=== PATIENT | male | born 1965 | race African-American/Black ===

== ENCOUNTER 2016-11-22 12:00 | Outpatient (CLI) | payer OTHER ==
[~2016-11-22] VITALS: Ht 185.4 cm; Wt 110.5 kg
--- NOTE | ~2016-11-22 | HEMODYNAMI ---
PATIENT:ANGELICA CHOI MEDICAL RECORD: [id number] : 61 LOCATION:D.CAT ADMISSION DATE: 11/22/16 Generatedon:11/22/201614:32 Patient name: ANGELICA CHOI Patient #: [id number] SSN: : Date of study: 11/22/2016 Page: Of Hemodynamic Procedure Report Patient Data Patient Demographics Procedure consent was obtained First Name: ANGELICA Gender: Male Last Name: JIMBO : 1965 Patient #: [id number] Age: 51 year(s) Race: Black Additional ID: [id number] Contact details [address]: [address] [place] [address] State: [place] City: [place] Zip code: [address] Past Medical History Allergies Allergen Reaction Date Comments Reported Morphine 11/22/2016 Admission Admission Data Admission Date: 11/22/2016 Admission Time: 12:00 Lab Results Lab Result Date: 11/22/2016 Lab Result Time: 0:00 Biochemistry Name Units Result Min Max BUN mg/dl 11 --(-*--)-- 7 18 Creatinine mg/dl 1.1 --(--*-)-- 0.6 1.3 CBC Name Units Result Min Max Hemoglobin g/dl 13.6 --(*---)-- 13.5 17.5 Procedure Procedure Types Cath Procedure Diagnostic Procedure C [facility] w/Coronaries Miscellaneous Procedures Moderate Sedation up to 15 minutes Procedure Description Procedure Date Procedure Date: 11/22/2016 Procedure Start Time: 14:21 Procedure End Time: 14:29 Procedure Staff Name Function Carlyle Coronado RT Scrub Evelyn Harding RN Nurse Margarito Logan RT Monitor Duane Campoverde MD Performing Physician Procedure Data Cath Procedure Fluoroscopy Diagnostic fluoroscopy Total fluoroscopy Time: 1.8 time: 1.8 min min Diagnostic fluoroscopy Total fluoroscopy dose: 586 dose: 586 mGy mGy Contrast Material Contrast Material Type Amount (ml) Isovue 300 56 Entry Location Entry Primary Successful Side Size Upsize Upsize Entry Closure Menard ccessful Closure Location (Fr) 1 (Fr) 2 (Fr) Remarks Device Remarks Radial Right 6 Fr Mechanical artery Short Compression Diagnostic catheters Device Type Used For End Catheter Placement Terumo 5Fr Eric 110cm LV Angiography catheter Procedure Complications No complications Procedure Medications Medication Administration Route Dosage Oxygen NC 2 l/min Heparin Flush Bag added to field 2 bags (1000units/500ml NS) Lidocaine 2% added to field 20 Radial Cocktail added to field 1 syringe (Verapomil 2mg/Nitro 400mcg/Heparin 1500units) Versed I.V. 1 mg Fentanyl I.V. 50 mcg Versed I.V. 1 mg Fentanyl I.V. 50 mcg Fentanyl I.V. 50 mcg Radial Cocktail I.A. 1 syringe (Verapomil 2mg/Nitro 400mcg/Heparin 1500units) Versed I.V. 1 mg Hemodynamics Rest HGB: 13.6 (g/dl) Heart Rate: 67 (bpm) Pressure Samples Time Site Value (mmHg) Purpose Heart Use Rate(bpm) 14:22 LV 143/-2,18 EDP 69 14:23 AO 120/68(85) Pullback 58 14:23 LV 157/2,19 Pullback 58 Gradients Valve Time Site 1 Site 2 Mean SEP/DFP Peak To Heart Use (mmHg) (sec/min) Peak Rate (mmHg) (bpm) Aortic 14:23 LV AO 9 14 37 58 157/2,19 120/68(85) Calculations Valve P-P Mean Valve Index Valve Source Name Gradient Area Flow (cm2) Aortic 37 9 37 9 Snapshots Pre Cath Intra NCS Post Cath Vital Signs Time Heart Resp SPO2 NIBP (mmHg) Rhythm Pain Sedation Rate (ipm) (%) Status Level (bpm) 13:55:32 63 16 100 138/82(111) NSR 0 (11) 10(A) , No pain 13:59:54 61 16 100 140/82(116) NSR 0 (11) 10(A) , No pain 14:04:10 62 18 100 138/84(102) NSR 0 (11) 10(A) , No pain 14:08:30 58 16 98 127/73(96) NSR 0 (11) 10(A) , No pain 14:12:50 60 16 98 141/72(123) NSR 0 (11) 10(A) , No pain 14:17:08 60 16 98 120/74(98) NSR 0 (11) 9(A) , No pain 14:21:20 60 16 98 128/78(109) NSR 0 (11) 9(A) , No pain 14:25:38 72 16 98 120/66(85) NSR 0 (11) 9(A) , No pain 14:29:17 75 16 93 125/74(98) NSR 0 (11) 9(A) , No pain Medications Time Medication Route Dose Verified Delivered Reason Notes Effectiveness by by 13:58:21 Oxygen NC 2 l/min Duane Evelyn Per Gilles Harding RN physician 13:58:34 Heparin Flush added 2 bags Duane Duane used for Bag to Gilles Campoverde MD procedure (1000units/500ml field NS) 13:58:41 Lidocaine 2% added 20ml Duane Duane used for to vial Gilles Campoverde MD procedure field 13:58:47 Radial Cocktail added 1 Duane Duane used for (Verapomil to syringe Gilles Campoverde MD procedure 2mg/Nitro field 400mcg/Heparin 1500units) 14:11:56 Versed I.V. 1 mg Duane Evelyn for sedation Gilles Harding RN 14:12:04 Fentanyl I.V. 50 mcg Udane Evelyn for sedation Gilles Harding RN 14:14:02 Versed I.V. 1 mg Duane Evelyn for sedation Gilles Harding RN 14:14:12 Fentanyl I.V. 50 mcg Duane Evelyn for sedation Gilles Harding RN 14:16:18 Versed I.V. 1 mg Duane Evelyn for sedation Gilles Harding RN 14:16:51 Fentanyl I.V. 50 mcg Duane Evelyn for sedation Gilles Harding RN 14:21:38 Radial Cocktail I.A. 1 Duane Duane for (Verapomil syringe Gilles Campoverde MD vasodilation 2mg/Nitro 400mcg/Heparin 1500units) Procedure Log Time Note 13:19:01 ACC Patient presents with Stable Angina CCS Anginal Class 2--Slight limitation of ordinary activity. 13:19:04 Diagnostic Cath status Elective 13:30:53 Carlyle GRACIA(R) sent for patient. Start room use. 13:41:54 Time tracking: Regular hours 13:41:57 Plan of Care:Hemodynamics will remain stable., Cardiac rhythm will remain stable., Comfort level will be maintained., Respiratory function will remain adequate., Patient/ family verbilizes understanding of procedure., Procedure tolerated without complication., Recovers from procedure without complications.. 13:49:58 Patient received from Pre/Post Procedure Room to CCL 2 Alert and oriented. Tansferred to table in Supine position. 13:50:00 Warm blankets applied, and tony hugger turned on for patient comfort. 13:50:00 Correct patient and procedure confirmed by team. 13:50:01 Signed procedure consent form obtained from patient. 13:50:02 ECG and BP/O2 sat monitors applied to patient. 13:54:16 Vital chart was started 13:58:21 Oxygen 2 l/min NC was administered by Evelyn Harding RN; Per physician; 13:58:34 Heparin Flush Bag (1000units/500ml NS) 2 bags added to field was administered by Duane Campoverde MD; used for procedure; 13:58:41 Lidocaine 2% 20ml vial added to field was administered by Duane Campoverde MD; used for procedure; 13:58:47 Radial Cocktail (Verapomil 2mg/Nitro 400mcg/Heparin 1500units) 1 syringe added to field was administered by Duane Campoverde MD; used for procedure; 14:03:35 Baseline sample Acquired. 14:03:39 Rhythm: sinus rhythm 14:03:40 Full Disclosure recording started 14:04:59 H&P Date Dictated: 11/09/2016 Within 30 days and on chart., H&P Addendum completed by physician on day of procedure. (MUST COMPLETE FOR ALL OUTPATIENTS). 14:05:00 Pre-procedure instructions explained to patient. 14:05:01 Pre-op teaching completed and patient verbalized understanding. 14:05:02 Family in patients room. 14:05:04 Patient NPO since Midnight. 14:05:10 Patient allergic to Morphine 14:05:12 Is the patient allergic to Iodine/contrast media? No. 14:05:15 Is patient on blood thinner?No 14:05:31 Patient diabetic? No. 14:05:33 ----Pre-sedation anethsthesia assessment.---- 14:05:35 Previous problem with sedation/anesthesia? No ? 14:05:36 Snore? Yes 14:05:37 Sleep apnea? No 14:05:38 Deviated septum? No 14:05:40 Opens mouth fully? Yes 14:05:41 Sticks out tongue? Yes 14:05:43 Airway obstruction? No ? 14:05:44 Dentures? No ? 14:05:48 Pre procedure: right dorsailis pedis pulse 1+ Palpable, but thready & weak; easily obliterated 14:05:52 Modified Niels's test Ulnar < 7 seconds 14:05:55 Patient pain scale 0/10 ?. 14:05:59 IV patent on arrival in left hand with 0.9% NaCl at 10ml/hr. 14:06:19 Lab Result : BUN 11 mg/dl 14:06:19 Lab Result : Hemoglobin 13.6 g/dl 14:06:19 Lab Result : Creatinine 1.1 mg/dl 14:06:25 Lab results completed and on chart. 14:06:27 Right Radial & Right Groin area was prepped with chlora-prep and draped in sterile fashion 14:06:28 Alarms reviewed by R. N. 14:06:29 Sharps counted by scrub and verified by R.N. 14:07:36 Use device set Radial Dx 14:07:37 Acist Syringe opened to sterile field. 14:07:37 Medline Cath Pack opened to sterile field. 14:07:38 Bag Decanter opened to sterile field. 14:07:38 Terumo 6Fr Slender Glidesheath opened to sterile field. 14:07:38 St Moises 260cm J .035 wire opened to sterile field. 14:07:39 Acist Hand Control opened to sterile field. 14:07:39 Acist Manifold opened to sterile field. 14:07:40 Tegaderm 4 x 4 opened to sterile field. 14:07:40 MBrace Wrist Support opened to sterile field. 14:07:46 Cook 21G 4cm Radial Needle opened to sterile field. 14:11:19 --------ALL STOP TIME OUT------ 14:11:20 Final Timeout: patient, procedure, and site verified with staff and physician. All members of the team are in agreement. 14:11:22 Right Radial & Right Groin site verified by team. 14:11:30 Physical assessment completed. ASA score P 2 - A patient with mild systemic disease as per Duane Campoverde MD. 14:11:33 Sedation plan: IV Moderate Sedation Versed, Fentanyl 14:11:56 Versed 1 mg I.V. was administered by Evelyn Harding RN; for sedation; 14:12:04 Fentanyl 50 mcg I.V. was administered by Evelyn Harding RN; for sedation; 14:14:02 Versed 1 mg I.V. was administered by Evelyn Harding RN; for sedation; 14:14:12 Fentanyl 50 mcg I.V. was administered by Evelyn Harding RN; for sedation; 14:16:18 Versed 1 mg I.V. was administered by Evelyn Harding RN; for sedation; 14:16:51 Fentanyl 50 mcg I.V. was administered by Evelyn Harding RN; for sedation; 14:20:28 Procedure started. 14:21:03 Local anesthetic to right radial artery with Lidocaine 2% by Duane Campoverde MD.INITIAL ACCESS ONLY 14:21:12 A 6 Fr Short sheath was inserted into the Right Radial artery 14:21:38 Radial Cocktail (Verapomil 2mg/Nitro 400mcg/Heparin 1500units) 1 syringe I.A. was administered by Duane Campoverde MD; for vasodilation; 14:21:38 A Terumo 5Fr Eric 110cm catheter was advanced over the wire and used for LV Angiography. 14:22:09 LV angiography performed. 14:22:37 LV gram done using GUPTA 14::51 EF : 60 % 14::53 LV hemodynamics recorded. 14::57 Injector settings: Ml/sec: 7, Volume: 15, 14:25:32 LCA angiography performed. 14:25:34 RCA angiography performed. 14:: Catheter removed. 14:: Contrast amount:Isovue 300 56ml. 14::42 Sheath removed intact; hemostasis achieved with Mechanical Compression to the Right Radial artery. 14::44 Procedure ended.(Physican Out) 14::55 Fluoroscopy time 01.80 minutes. 14:: Fluoroscopy dose: 586 mGy 14:: Flurop Dose total: 586 14:27:15 Sharps counted by scrub and verified by R.N. 14:27:18 TR band inflated with 10cc of air. 14:27:24 Post right radial artery:stable 14:27:25 Post Procedure Pulses reassessed and unchanged 14:27:31 Post procedure rhythm: sinus rhythm 14:27:32 Post procedure instruction explained to patient.Patient verbalizes understanding. 14:28:13 Procedure type changed to Cath procedure, Diagnostic procedure, LHC, LHC w/Coronaries, Miscellaneous Procedures, Moderate Sedation up to 15 minutes 14:28:16 Procedure and supply charges have been captured, reviewed, submitted and are correct. 14:28:31 Terumo TR Band Standard opened to sterile field. 14:28:57 Procedure Complication : No complications 14:28:59 Vital chart was stopped 14:29:00 See physician's report for complete and final results. 14:29:05 Report given to Pre/Post Procedure Room. 14:29:11 Patient transfered to Pre/Post Procedure Room with Stretcher. 14:29:12 Procedure ended. 14:29:12 Full Disclosure recording stopped 14:29:19 End room use (Document Last) Device Usage Item Name Manufacture Quantity Catalog Hospital Part Current Minimal Lot# / Number Charge Number Stock Stock Serial# Code Acist Acist 1 24015 655373 150976 633412 20 Syringe [employer] Medline Cardinal 1 [id number] 525736 15241 564906 5 Cath Pack Health Bag Microtek 1 2002S 251225 62195 845614 5 [employer] Terumo 6Fr Terumo 1 [id number] 389163 492404 453582 [address] St Moises 1 577002 930192 009159 651877 30 260cm J .035 wire Acist Hand Acist 1 95131 841971 790828 386751 5 Control [employer] Inc Acist Acist 1 02756 467171 306586 346297 5 Manifold [employer] Inc Tegaderm 4 3M 1 1626W 610588 655977 331443 5 x 4 MBrace Advanced 1 140-0250-00 018400 72458 878846 5 Wrist Vascular Support [employer] Cook 21G [employer] 1 [id number] 878084 669612 731284 5 4cm Radial Needle Terumo 5Fr Terumo 1 43-8363 793742 741536 023453 5 Eric 110cm catheter Terumo TR Terumo 1 [id number] 657225 736996 207123 40 Band Standard Signature Audit Mobile Stage Time Signature Unsigned Intra-Procedure 11/22/2016 Margarito Logan 2:32:14 PM RT(R) Signatures Monitor : Margarito Logan RT Signature : Date : Time : [facility] [address] [place] [address]
--- NOTE | ~2016-11-22 | OP ---
PATIENT NAME: ANGELICA CHOI MEDICAL RECORD: [id number] :61 LOCATION:D.CAT ADMISSION DATE: SURGEON: TAB JANSEN M.D. DATE OF OPERATION: 11/22/2016 Catheterization Report REFERRING PHYSICIAN: Dr. Austin Conde at [place], [place]. PROCEDURES PERFORMED: 1. Selective coronary angiography. 2. Left heart catheterization with ventriculogram. INDICATION: A 51-year-old gentleman presents with symptoms of angina. Recent Cardiolite stress test revealed inferior and apical ischemia. EQUIPMENT USED: A 5-Japanese Eric catheter. TECHNIQUE: A 6-Japanese sheath was inserted in retrograde fashion in the right radial artery. Next, selective coronary angiography was performed in standard views 5-Japanese Eric catheter. Left heart catheterization was performed using a Eric catheter as well. CORONARY ANATOMY: 1. Left main: Left main trunk is moderate in caliber. It gives rise to the LAD and circumflex. It has no obstruction. 2. LAD: This is a moderate caliber vessel extending to the apex. The proximal vessel has mild irregularities, but nothing worse than 20%. 3. Circumflex: This vessel is moderate in caliber. It provides the lateral branch in mid segment. The circumflex and lateral branch are angiographically normal. 4. Right coronary: This vessel is moderate in caliber and dominant. The proximal vessel has mild irregularities, but nothing worse than 20%. 5. Left ventricle: Left ventricle is normal in size and function. No wall motion abnormalities are noted. Estimated ejection fraction is 60%. IMPRESSION: 1. Mild coronary artery disease. 2. Normal left ventricular function. RECOMMENDATIONS: I suspect the Cardiolite stress was a false positive. We will continue the medical management. TRANSINT:[id number] Voice Confirmation ID: [id number] DOCUMENT ID: [id number] TAB JANSEN M.D. CC: [id number] DICTATION DATE: 11/22/16 1438 LOCAL COMPANY TRUCK DRIVER: 11/22/161956 DEP CLI 11/22/16 [place] [id number] [place] [id number]
[2016-11-22] MEDS ORDERED: FISH OIL 1,0001 CA1 PO (12:39)
[2016-11-22] MEDS ORDERED: BAYER CHEWABLE81 MG PO (12:39)
[2016-11-22] MEDS ORDERED: CARAFATE1 G PO (12:40)
[2016-11-22] MEDS ORDERED: ATIVAN1 MG (12:40)
[2016-11-22] MEDS ORDERED: PROTONIX40 MG PO (12:41)
[2016-11-22 12:42] VITALS: BP 127/78; Ht 185.4 cm; Wt 110.5 kg
[2016-11-22 13:00] LABS: BASOPHILS 0.3 % (0.0-2.0); HEMATOCRIT 40.1 % (42.0-54.0); HEMOGLOBIN 13.6 g/dL (13.5-17.5); MCH 29.8 pg (26.0-34.0); MCHC 33.9 g/dL (31.0-37.0); MCV 87.7 fL (80.0-100.0); MONOCYTES 7.1 % (2-11); NEUTROPHILS 53.6 % (40-80); PLATELET COUNT 153 10x3/uL (130-400); RBC 4.57 10x6/uL (4.20-6.10); RDW 13.9 % (11.5-14.5)
[2016-11-22 13:10] LABS: ANION GAP 13.6 mmol/L (8-16); CALCIUM 8.7 mg/dL (8.5-10.1); CARBON DIOXIDE 27.5 mmol/L (21.0-32.0); CREATININE - SERUM 1.1 mg/dL (0.6-1.3); POTASSIUM - SERUM 4.1 mmol/L (3.5-5.1)
--- NOTE | 2016-11-22 15:15 | NUR ---
1500-RESTING WITH EYES CLOSED, RIGHT WRIST CDI WITH TR BAND AND BRACE INTACT, NO BLEEDING
== END 2016-11-22 17:00 | disposition home or self-care (01) ==
LOC: D.CATH 12:00
PROVIDERS: Internal Medicine Cardiovascular Disease
DX: I20.9 Angina pectoris, unspecified (principal); R94.30 Abnormal result of cardiovascular function study, unspecified; R07.9 Chest pain, unspecified